=== PATIENT | male | born 1985 | race African-American/Black ===

== ENCOUNTER 2017-03-30 11:01 | Emergency (ER) | payer OTHER ==
[~2017-03-30] VITALS: Ht 180.3 cm; Wt 75.1 kg
[~2017-03-30 11:01] MED LIST: NOHOMEMEDS
[2017-03-30] MEDS ORDERED: NAPROSYN500 MG PO (13:58)
[2017-03-30] MEDS ORDERED: FLEXERIL10 MG PO (13:58)
[2017-03-30 14:05] VITALS: BP 125/71
== END 2017-03-30 14:07 | disposition home or self-care (01) ==
LOC: EME 11:01
DX: S43.401A Unspecified sprain of right shoulder joint, initial encounter (principal); X50.0XXA Overexertion from strenuous movement or load, initial encounter
CPT/HCPCS: 73030; 99281; 99284

== ENCOUNTER 2017-04-15 00:32 | Emergency (ER) | payer OTHER ==
[~2017-04-15] VITALS: Ht 180.3 cm; Wt 73.6 kg
[~2017-04-15 00:32] MED LIST changes: +FLEXERIL10 MG PO; +NAPROSYN500 MG PO
[2017-04-15] MEDS ORDERED: NORCO 5/3251 TABLET PO (01:19)
[2017-04-15 01:34] VITALS: BP 151/83
== END 2017-04-15 01:36 | disposition home or self-care (01) ==
LOC: EME 00:32
PROC: 2W38X1Z Immobilization of Right Upper Extremity using Splint (ICD-10-PCS; principal; 2017-04-15)
DX: S62.316A Displaced fracture of base of fifth metacarpal bone, right hand, initial encounter for closed fracture (principal); W22.03XA Walked into furniture, initial encounter; Y93.71 Activity, boxing; Z88.0 Allergy status to penicillin
CPT/HCPCS: 73130; 99281; 99283